=== PATIENT | female | born 1995 | race Caucasian/White ===

== ENCOUNTER 2020-11-28 12:09 | Day surgery (SDC) | payer MEDICAID, OTHER ==
[2020-11-28] MEDS ORDERED: hydrALAZINE 20 MG/ML VIAL SLOW IVP PRN (13:09)
[2020-11-28] MEDS ORDERED: Calcium Carbonate 500 MG ChewTAB PO PRN (13:48)
--- NOTE | 2020-11-28 13:49 | PDOC.LDHP ---
Labor and Delivery H&P Chief complaint: abdominal pain HPI: Patient is a 25 yo at unknown gestation but with reported CANDIDO of either 11/14/20 or 12/04/20 who presents to triage with complaint of lower achy abdominal pain that has been ongoing for 1-2 weeks and worsening in the last 3-4 days. Also has had some dysuria and "lots of thin discharge" for the last 4 days. Denies itching, vaginal bleeding, contractions. Patient states she was seen for this problem at a [place] facility 2 days ago but left AMA because she preferred to establish care in [place] instead of [place]. Her 2 previous pregnancies were managed by Dr. Bennett at [facility]. She has not seen anyone for care with this . She did have an ultrasound in August but does not know details other than being told the baby looked healthy and was a male. She currently smokes 1/2 ppd. Dating criteria: other (unknown CANDIDO, has LMP of 01/26/2020) Grav: 3 Para: 2 (2001) OB History Details: No care this pLTCS for NRFHT in 2012 rLTCS in 2017 Denies any issues in prior pregnancies with blood pressure or diabetes Current complications: other (no PNC) Past Medical History: Anxiety GERD smokes 1/2 ppd Current medications: none Previous surgical history: low tranverse CS (x2) Allergies/Adverse Reactions: Allergies Allergy/AdvReac Type Severity Reaction Status Date / Time No Known Allergies Allergy Unverified 01/24/20 18:40 Social history: tobacco use (1/2 ppd), drug use (amphetamines, methamphetamines) - Physical Exam Vital signs reviewed and normal: yes General: resting Lungs: nonlabored breathing Abdomen: NTTP Extremeties: no edema FHT: category 1, variability present [place] contractions every: none seen - OB Labs Blood type: O RH: positive Antibody Screen: unknown HIV: unknown RPR: unknown HEPSAg: unknown GBS: unknown Urine drug screen: positive (methamphetamines) - Plan -: 25 yo at unknown gestational age presents with lower abdominal pain: #Abdominal Pain -check UA, VP3, GC/CT -Amnisure to check for ruptured membranes -complete OB U/S #Third Trimester , suspected -LMP 01/26/2020, hx of irregular periods -obtain labs including CBC, HIV, RPR, Rubella, UDS -GBS swab now -continuous external monitoring while in L&D, currently cat 1 tracing Dispo: Obtain labs and ultrasound. Place on continuous external monitoring. ADDENDUM 11/28/20 @ 1430: Amnisure negative. Ultrasound shows 38.2 week gestation with CANDIDO of 12/10/2020, vertex presentation. UDS positive for methamphetamines. Cervical check 2/thick/high. Will schedule for rLTCS on 12/03/20 @ 0830, COVID swab today in preparation for this. Will call patient with results of pending labs if needs antibiotic treatment. DO Mandeep, PGY-2 Above H&P discussed with Dr. William who agrees with plan. Addendum - Attending - Attending Attestation Date/Time: 11/28/20 7039 I personally evaluated the patient and discussed the management with Dr. Nuñez. I agree with the History, Examination, Assessment and Plan documented above with any addition or exceptions noted below. at 38w2d by today's ultrasound with no care and no e/o acute process. Dating unsure otherwise as she has irregular periods. Patient reported having an ultrasound at [facility]. After talking to radiology there, she has not been seen or imaged since 2012. UDS + for meth and amphetamines. NPC labs unremarkable otherwise. status reassuring with reactive NST and normal SHARYN. Covid swab collected. Patient scheduled for repeat LTCS at 39 weeks on 12/03 to be performed by [facility]. Patient informed of this scheduling and became tearful because she "wants to have the baby NOW." Reports feeling safe at home, just doesn't want to be anymore. Discharged home with precautions. NPO after midnight on Monday.
--- NOTE | 2020-11-28 13:58 | ULT ---
Obstetrical ultrasound: 11/28/2020 COMPARISON: None HISTORY: No care, 25-year-old female TECHNIQUE: Multiplanar grayscale sonographic imaging of the gravid uterus obtained. FINDINGS: A single intrauterine gestation is present demonstrating a vertex presentation. Amniotic fl uid index is 11.8 cm. heart rate is 139 bpm. intracranial contents are not well assessed secondary to gestational age and location of the fe jean-paul head. Gestational age limits assessment of the spine. Four-chamber heart view appears suboptimal. stomach, kidneys, umbilical cord, and bladder appea r grossly unremarkable. No evidence for placental previa or placental abruption. biometry: Biparietal diameter 8.5 cm 34 weeks 3 days Abdominal circumference 35.3 cm 39 weeks 2 days Head circumference 33.9 cm 39 weeks 0 days Femur length 7.6 cm 39 weeks 0 days Average age based on ultrasound is 38 weeks 2 days. Estimated date of delivery is to 02/23/2021. Estimated weight is 3514 g +/- 520 g. IMPRESSION: Intrauterine gestation as detailed above.
[2020-11-28 13:59] LABS: Bilirubin Negative (Negative); Blood, Urine Negative (Negative); Clarity Clear (Clear); Glucose, Urine (Dipstick) Normal (Negative); Ketone, Urine Negative (Negative); Leukocyte 500 Leu/uL (Negative); Nitrite Negative (Negative); Protein, Urine (Dipstick) 10 mg/dL (Neg-Trace); Specific Gravity, Urine 1.017 (1.002-1.036); Urobilinogen Normal mg/dL (Less than 2); WBC/HPF 21-50 HPF (0-3)
[2020-11-28 14:00] LABS: Bacteria/HPF 1+ HPF (None Seen)
[2020-11-28 14:02] LABS: Medtox Reader # READER 4; Methamphetamine Detected (NotDetected)
[2020-11-28 14:03] LABS: Amphetamine Detected (NotDetected); Barbiturates Screen Not Detected (NotDetected); Benzodiazepine Screen Not Detected (NotDetected); Cocaine Metabolite Screen Not Detected (NotDetected); Medtox Control Line Valid? VALID (VALID); Methadone Not Detected (NotDetected); Opiate Screen Not Detected (NotDetected); Oxycodone Screen Not Detected (NotDetected); Phencyclidine (PCP) Not Detected (NotDetected); THC/Cannabinoid Screen Not Detected (NotDetected); Tricyclic Screen Not Detected (NotDetected)
[2020-11-28 14:10] VITALS: BMI 26.4
[2020-11-28 14:18] LABS: #Eosinphils 0.1 thou/uL (0.0-0.7); #Lymphocytes 2.5 thou/uL (1.20-3.40); #Monocytes 0.5 thou/uL (0.11-0.59); #Neutrophils 4.9 thou/uL (1.40-6.50); %Basophils 0.2 % (0.0-1.0); %Eosinophils 1.8 % (0.0-10.0); %Lymphocytes 30.8 % (21.0-51.0); %Monocytes 6.2 % (0.0-10.0); %Neutrophils 61.1 % (42.0-75.0); Hemoglobin 10.9 g/dL (12.0-16.0); Mean Corpuscular Hemoglobin 28.9 pg (27.0-31.0); Mean Platelet Volume 9.4 fL (7.4-10.4); Platelet Count 210 thou/uL (130-400); RBC Distribution Width 12.5 % (11.5-14.5); Red Blood Cell (RBC) Count 3.75 mill/uL (4.20-5.40)
[2020-11-28 14:24] LABS: Amnisure Test No Membranes Rupture (No Rupture)
[2020-11-28 14:25] LABS: Amnisure Internal Control QC ACCEPTABLE (ACCEPTABLE)
[2020-11-28 15:06] LABS: HBSAB Concentration Less than 8.00 mIU/mL; Hep B Surf AB Non-Reactive (NonReactive); Syphilis Antibody Nonreactive (Nonreactive); Syphilis Antibody Index 0.03 S/CO (<1.00 Non-Reactive)
[2020-11-28 19:00] LABS: SARS-CoV-2 PCR by NAA Not Detected (NotDetected)
[2020-11-28 19:12] LABS: HIV (1/2) Antibody/Antigen Non-Reactive (NonReactive); HIV 1/2 INDEX 0.13 S/CO (<1.00); Hep C IgG Ab Non-Reactive (NonReactive); Hep C Index 0.06 S/CO (0-0.79)
[2020-12-01 21:58] LABS: Chlamydia by PCR DETECTED (NotDetected); GC by PCR Not Detected (NotDetected)
== END 2020-11-28 14:50 | disposition home health service (06) ==
LOC: L&D/OP 12:09
PROVIDERS: ATTEND Obstetrics & Gynecology
DX: O99.891 Other specified diseases and conditions complicating pregnancy (principal); R10.30 Lower abdominal pain, unspecified; R30.0 Dysuria; N89.8 Other specified noninflammatory disorders of vagina; O99.333 Smoking (tobacco) complicating pregnancy, third trimester; F17.210 Nicotine dependence, cigarettes, uncomplicated; O99.613 Diseases of the digestive system complicating pregnancy, third trimester; K21.9 Gastro-esophageal reflux disease without esophagitis; O99.343 Other mental disorders complicating pregnancy, third trimester; F41.9 Anxiety disorder, unspecified; O34.211 Maternal care for low transverse scar from previous cesarean delivery; Z3A.38 38 weeks gestation of pregnancy; Z20.822 Contact with and (suspected) exposure to COVID-19
CPT/HCPCS: 36415; 76805; 80306; 81001; 84112; 85025; 86706; 86762; 86780; 86803; 86850; 86900; 86901; 87081; 87389; 87480; 87491; 87510; 87591; 87635; 87660; U0003; U0005

== ENCOUNTER 2020-11-29 08:44 | Inpatient (IN) | payer OTHER ==
[2020-11-29] MEDS ORDERED: hydrALAZINE 20 MG/ML VIAL SLOW IVP PRN ×3 (09:03→15:48)
[2020-11-29] MEDS ORDERED: metroNIDAZOLE 500 MG TAB PO SCH (09:15)
[2020-11-29 09:27] VITALS: BMI 26.4
[2020-11-29] MEDS ORDERED: FLU VACC QS2020-21(6MOS UP)/PF 60 MCG/0.5 ML SYRINGE IM ONE (09:30)
[2020-11-29] MEDS ORDERED: Ondansetron PF 4 MG/2 ML Vial IVP PRN ×3 (09:57→15:48)
[2020-11-29] MEDS ORDERED: Famotidine/PF 20 mg/2ml Vial SLOW IVP PRN (09:57)
[2020-11-29] MEDS ORDERED: Promethazine HCl 25 MG/ML VIAL IM PRN ×3 (09:57→15:48)
[2020-11-29] MEDS ORDERED: Bicitra 30 ML UDCUP PO PRN (09:57)
[2020-11-29] MEDS ORDERED: CEFAZOLIN 2 GM in Premix Bag 1 BAG IVPB SCH (10:00)
[2020-11-29] MEDS ORDERED: Lactated Ringer's 1,000 ML IV SCH (10:00)
[2020-11-29] MEDS ORDERED: Azithromycin 500 MG in Sodium Chloride 0.9% 250 ML 250 ML IVPB SCH (10:00)
[2020-11-29] MEDS: Butorphanol Tartrate 1 MG/ML VIAL SLOW IVP PRN ×2 (10:27→12:17)
[2020-11-29 10:33] LABS: Amnisure Internal Control QC ACCEPTABLE (ACCEPTABLE); Amnisure Test RUPTURE DETECTED (No Rupture)
[2020-11-29 10:49] LABS: Hemoglobin 10.9 g/dL (12.0-16.0); Mean Corpuscular HGB CONC 32.9 g/dL (32.0-36.0); Mean Corpuscular Hemoglobin 27.9 pg (27.0-31.0); Mean Corpuscular Volume 84.9 fL (78.0-98.0); Mean Platelet Volume 9.5 fL (7.4-10.4); Platelet Count 216 thou/uL (130-400); RBC Distribution Width 12.4 % (11.5-14.5); Red Blood Cell (RBC) Count 3.92 mill/uL (4.20-5.40); White Blood Cell (WBC) Count 8.1 thou/uL (4.8-10.8)
[2020-11-29] MEDS ORDERED: Butorphanol Tartrate 1 MG/ML VIAL SLOW IVP PRN (12:22)
[2020-11-29] MEDS ORDERED: Oxytocin 10 UNITS/ML VIAL ONE ×2 (12:29→13:31)
[2020-11-29] MEDS ORDERED: Morphine PF 10 MG/10 ML VIAL ONE (12:29)
[2020-11-29] MEDS ORDERED: PHENYLEPHRINE-NS 100 MCG/ML 10 ML SYRINGE ONE (12:51)
[2020-11-29] MEDS ORDERED: Succinylcholine 200 MG/10 ml SYRINGE FS ONE (13:04)
[2020-11-29] MEDS ORDERED: PROPOFOL 0 ML ONE (13:04)
[2020-11-29] MEDS ORDERED: Ketamine 50 MG/ML (10ML VIAL) ONE (13:06)
[2020-11-29] MEDS ORDERED: Fentanyl 100 MCG/2 ML VIAL ONE (13:06)
[2020-11-29] MEDS ORDERED: Midazolam HCl 2 mg/2 ml Vial ONE (13:06)
[2020-11-29] MEDS ORDERED: Ondansetron HCl/PF 4 MG/2 ML Vial IVP PRN (13:53)
[2020-11-29] MEDS ORDERED: Naloxone HCl 0.4 mg/ml Vial IV PRN (13:53)
[2020-11-29] MEDS ORDERED: Meperidine HCl/PF 25 MG/ML VIAL SLOW IVP PRN (13:53)
[2020-11-29] MEDS ORDERED: Promethazine HCl 25 MG SUPP PR PRN (13:53)
[2020-11-29] MEDS ORDERED: diphenhydrAMINE 50 MG/ML VIAL IVP PRN (13:53)
[2020-11-29] MEDS ORDERED: L&D-Morphine 4 MG/ML VIAL SLOW IVP PRN (13:53)
[2020-11-29] MEDS ORDERED: HYDROmorphone 2 MG/ML VIAL SLOW IVP PRN (13:53)
[2020-11-29] MEDS ORDERED: Naloxone HCl 0.4 mg/ml Vial IVP PRN ×2 (13:53)
--- NOTE | 2020-11-29 13:53 | PDOC.FPRHP ---
- History of Present Illness Chief Complaint: contractions History of Present Illness: Patient recently triaged (11/28) for similar complaint. No PNC. Today began having ctx @ 0500 that are painful and q5-6 minutes. She endorses leakage of fluid and vaginal pressure. She denies vaginal bleeding or decreased movement. - Allergies/Adverse Reactions Allergies Allergy/AdvReac Type Severity Reaction Status Date / Time No Known Allergies Allergy Verified 11/28/20 15:33 - Home Medications Medication Instructions Recorded Confirmed Type No Known 11/29/20 11/29/20 History - History PMHx: PSHx: FHx: Social: - Vital signs BP: [] HR: [] RR: [] Tmax: [] Pox: []% on [] Wt: [] FMR H&P: Results - Labs Result Diagrams: 11/29/20 10:17 Lab results: WBC 8.1 thou/uL (4.8-10.8) 11/29/20 10:17 Hgb 10.9 g/dL (12.0-16.0) L 11/29/20 10:17 Hct 33.2 % (36.0-47.0) L 11/29/20 10:17 MCV 84.9 fL (78.0-98.0) 11/29/20 10:17 Plt Count 216 thou/uL (130-400) 11/29/20 10:17 FMR H&P: Upper Level - Plan Date/Time: 11/29/20 1351 I, [], have evaluated this patient and agree with findings/plan as outlined by recruitment intern resident. Pertinent changes/additions are listed here.
--- NOTE | 2020-11-29 13:55 | PDOC.FPROB ---
FMR OB H&P: HPI - History of Present Illness Chief Complaint: contractions Indentification: 25yo History of Present Illness: Patient recently triaged (11/28) for similar complaint. No PNC. Today began having ctx @ 0500 that are painful and q5-6 minutes. She endorses leakage of fluid and vaginal pressure. She denies vaginal bleeding or decreased movement. Primary Care Physician: NO PNC FMR OB H&P: Current - Care : 3 Para: 2001 Gestational age: 38.3 Due date: 12/10/20 Dating Criteria: 3T sono Course/Complications: NO PNC - OB Labs Blood type: O RH: positive Antibody Screen: negative HIV: negative RPR: negative HepBsAg: negative Urine drug screen: positive (meth and amphetamines) Gonorrhea: unknown (pending) Chlamydia: unknown (pending) GBS: unknown (pending) FMR OB H&P: History - Past Medical History PMH: Anxiety GERD Tobacco use - OB History OB History: NO PNC. pLTCS for NRFHT 2012, rLTCS in 2017 - FIGURE SKATER History FIGURE SKATER History: Recently + for michelle, BV and trich. GC/CT pending. - Surgical History Sx History: LTCS x 2 - Social History Social History: Tobacco use FMR OB H&P: Medications - Current Home Medications: Medication Instructions Recorded Confirmed Type No Known 11/29/20 11/29/20 History Allergies/Adverse Reactions: Allergies Allergy/AdvReac Type Severity Reaction Status Date / Time No Known Allergies Allergy Verified 11/28/20 15:33 FMR OB H&P: ROS - Review of Systems General: denies: fever/chills, weight/appetite/sleep changes, recent trauma Eyes: denies: vision changes ENT: denies: nasal congestion, rhinorrhea, sore throat Cardiovascular: denies: chest pain, palpitation, edema Respiratory: denies: cough, congestion Gastrointestinal: denies: abdominal pain, indigestion, bloating, cramping, nausea, vomiting Genitourinary (Female): denies: incontinence, dysuria, hematuria, vaginal discharge, vaginal pain, vaginal bleeding Musculoskeletal: denies: pain, stiffness, tenderness Neurologic: denies: numbness, syncope, seizures Integumentary: denies: itching, rash, lesions Breast: denies: lumps, bumps, masses Endocrine: denies: cold intolerance, heat intolerance FMR OB H&P: Vital Signs - Maternal Vital signs: Reviewed. WNL. - Heart Tones Baseline: 130 Variability: moderate Acceleration: present Deceleration: absent Category: category 1 FMR OB H&P: Physical Exam - Physical Exam General: NAD, awake, alert and oriented HEENT: normocephalic and atraumatic, PERRLA, EOMI, MMM, conjunctiva clear Neck: supple, FROM, trachea midline Chest: non-tender to palpation Breast: symmetric, non-tender Heart: RRR, normal S1/S2 General: CTAB, no respiratory distress Abdomen: soft, gravid, non-tender Musculoskeletal: normal gait and station Neurological: cranial nerves II through XII intact Skin: no rash, good tugor Psychiatric: intact recent and remote memory - Pelvic Exam Vulva: normal hair distribution Cervix: no masses, no lesions, no blood Deviation from normal: Open SVE: 2/50/-3 Membranes: obviously ruptured. Presentation: cephalic FMR OB H&P: Results - Labs Lab results: Laboratory Results - last 24 hr 11/29/20 11/29/20 11/29/20 09:58 10:17 10:17 WBC 8.1 RBC 3.92 L Hgb 10.9 L Hct 33.2 L MCV 84.9 MCH 27.9 MCHC 32.9 RDW 12.4 Plt Count 216 MPV 9.5 Amnio Swab Test RUPTURE DETECTED H Blood Type O POSITIVE Antibody Screen NEGATIVE FMR OB H&P: A/P Disposition: Stable, admit for delivery and routine pp care. Discussion: Date/Time: 11/29/20 1353 Term , SROM, in labor. - CTX q 4-5 min. - SROM prior to arrival. - Amnisure positive (collected prior to spec exam, which revealed grossly ruptured membranes. - 2 prior c-sections. Admit and plan for repeat MARIALUISA. - Methamphetamine positive 11/28/2020. Case management consulted. - Positive for yeast, BV and trichomonas. Received 1 dose of metronidazole. Will hold until has been determined. Janeth VALENCIA PGY2 This H&P was discussed with Dr. Nelson who agrees with the above documentation and plan.
[2020-11-29] MEDS ORDERED: Ketorolac Tromethamine 30 MG/ML VIAL IVP SCH (14:00)
[2020-11-29] MEDS ORDERED: Communication Order-Pharmacy FS SCH (14:00)
--- NOTE | 2020-11-29 15:01 | OP ---
DATE OF PROCEDURE: 11/29/2020 PREOPERATIVE DIAGNOSES: Poor care with approximately 38 to 39 weeks' gestation, history of methamphetamine abuse, history of prior delivery, spontaneous rupture of membranes, and early active labor. POSTOPERATIVE DIAGNOSES: Poor care with approximately 38 to 39 weeks' gestation, history of methamphetamine abuse, history of prior delivery, spontaneous rupture of membranes, early active labor plus lower uterine segment dehiscence. PROCEDURE PERFORMED: Repeat low-transverse section with midline lower uterine segment extension. INTERNAL INVESTIGATOR: Leia Boo MD, PGY-2. ANESTHESIOLOGIST: Mayo Rdz MD ANESTHESIA: Subarachnoid block. MEDICATIONS: 2 g Ancef, 500 Zithromax preincision. DVT PROPHYLAXIS: SCDs. DRAINS: Prado to gravity clear urine. OPERATIVE FINDINGS: 1. Vigorous male infant, cephalic presentation, clear fluid to nursery. 2. Approximately 3 to 4 cm lower uterine segment defect extending inferiorly with amniotic membranes protruding through at the time of entry into the abdominal cavity. 3. Normal-appearing uterus otherwise with repair of hysterotomy and extension. 4. Hemostasis, clear urine. COUNTS: Correct at the end of the procedure. DISPOSITION: To recovery room in good condition. DESCRIPTION OF PROCEDURE: After obtaining appropriate informed consent, the patient was taken to the operating room, where subarachnoid block was achieved without difficulty. She was prepped and draped in the usual manner. A skin incision was made, carried down to the fascia, was extended superiorly and laterally with curved Babin scissors. Rectus dissected off sharply superiorly and inferiorly, divided in midline. Peritoneum entered bluntly. Upon entry into the abdominal cavity, the finding of the disruption of the lower uterine segment was noted with amnion in the peritoneal cavity. The Jackson O retractor was placed inside. The disruption was extended superiorly and laterally with finger fractionization. Amniotic membrane ruptured and infant's head delivered through the hysterotomy, delivered on the abdomen. The cord was cut and clamped and handed off to the Team in attendance. Usual cord blood sample obtained. Placenta was removed manually. Lateral extensions of the hysterotomy were easily identified inferiorly at the level of the rupture. It had extended down approximately 2 cm below the usual level of the hysterotomy. It was, however, not involving the bladder and no evidence of injury to or disruption of the bladder mucosa was noted. Urine was noted to be clear in the tube. The hysterotomy was closed using a running locking #1 Monocryl suture x2, taking care to avoid injury to the bladder. Suction irrigation was carried out. Gutters were irrigated, noted to be dry. Hysterotomy was reinspected and noted to be dry. The Jackson O retractor was removed. Rectus inspected, noted to be dry. Counts were correct. The fascia was reapproximated using 0 PDS suture x2. Subcutaneous tissue was irrigated, rendered hemostatic with Bovie cautery. Skin was reapproximated using 4-0 Monocryl and Dermabond. Counts were correct x2. The patient entered into routine care. Nursery notified to [facility] that the patient has a positive methamphetamine test on her last presentation yesterday. Job ID: [id number]
[2020-11-29] MEDS ORDERED: Ketorolac Tromethamine 30 MG/ML VIAL ONE (15:36)
[2020-11-29] MEDS: Ketorolac Tromethamine 30 MG/ML VIAL IVP PRN (15:42)
[2020-11-29] MEDS ORDERED: Acetaminophen 325 MG TAB PO PRN (15:48)
[2020-11-29] MEDS ORDERED: diphenhydrAMINE 25 MG CAP PO PRN (15:48)
[2020-11-29] MEDS ORDERED: Simethicone Chewable 80 MG TAB PO PRN (15:48)
[2020-11-29] MEDS ORDERED: Lanolin Ointment 7 GM TUBE TOP PRN (15:48)
[2020-11-29] MEDS ORDERED: Adacel (T-DAP) 0.5 ML SYRINGE IM ONE (17:00)
[2020-11-29] MEDS ORDERED: Morphine 2 MG/ML VIAL SLOW IVP PRN (19:07)
[2020-11-29] MEDS ORDERED: Clotrimazole 2% 3 Day Vag Cr 22.2 GM TUBE VAG SCH (21:00)
[2020-11-30] MEDS: Ketorolac Tromethamine 30 MG/ML VIAL IVP PRN ×2 (00:35→05:55)
[2020-11-30] MEDS ORDERED: HYDROcodone/Acetaminophen 5/325 mg Tablet PO PRN (02:01)
[2020-11-30 06:18] LABS: Hemoglobin 9.6 g/dL (12.0-16.0); Mean Corpuscular HGB CONC 32.6 g/dL (32.0-36.0); Mean Corpuscular Hemoglobin 27.6 pg (27.0-31.0); Mean Corpuscular Volume 84.6 fL (78.0-98.0); Mean Platelet Volume 9.2 fL (7.4-10.4); Platelet Count 180 thou/uL (130-400); RBC Distribution Width 12.3 % (11.5-14.5); Red Blood Cell (RBC) Count 3.48 mill/uL (4.20-5.40); White Blood Cell (WBC) Count 10.9 thou/uL (4.8-10.8)
--- NOTE | 2020-11-30 07:22 | PDOC.PP ---
Post Progress Note Post Day #: 1 Subjective: Resting comfortably, no acute events overnight. Endorses abdominal pain only with palpation. Feels similar to previous c-sections. No chest pain, SOB, fever, chills. PO intake tolerated: yes Flatus: no Ambulation: yes Vital Signs (12 hours) Temp Pulse Resp BP Pulse Ox 11/30/20 05:58 99.1 F 82 16 135/86 11/29/20 23:25 98.4 F 72 16 131/82 11/29/20 20:08 98.0 F 52 L 16 140/86 97 Weight Weight 61.235 kg - Physical Examination General: NAD Cardiovascular: no m/r/g, RRR Respiratory: clear to auscultation bilaterally, non-labored breathing Abdominal: no distention Deviation from normal: moderately TTP, no rebound or rigidity Fundus firm & at: below umbilicus Deviation from normal: pressure dressing in place, c/d/i Neurological: no gross focal deficits Psychiatric: A&Ox3, normal affect Result Diagrams: 11/30/20 05:54 Additional Labs: Post Labs Blood Type O POSITIVE 11/29/20 10:17 - Assessment/Plan Term , delivered - s/p rLTCS on 11/30 remarkable for uterine segment defect - VSS, bleeding appropriate, Hgb appropriate, continue vitamin - moderate abdominal tenderness, monitor for signs of chorio - no care, GC/CT labs pending from 11/28 triage Methamphetamine use Positive on UDS, baby positive as well. - consult CPS Bacterial vaginosis, candidiasis, trichomonas - received metronidazole x 1 pre-op, held after due to potential for breastf eeding - consider resuming therapy pending CPS recs Reviewed plan with Dr. Nelson. Fauzia Carcamo, DO, PGY-1
[2020-11-30] MEDS: Prenatal Vitamin 1 TAB PO SCH (08:39)
[2020-11-30] MEDS: Ibuprofen 800 MG TAB PO SCH ×2 (14:08→20:34)
[2020-11-30] MEDS: HYDROcodone/Acetaminophen 5/325 mg Tablet PO PRN (18:35)
[2020-12-01] MEDS: HYDROcodone/Acetaminophen 5/325 mg Tablet PO PRN ×3 (01:14→11:55)
[2020-12-01] MEDS: Ibuprofen 800 MG TAB PO SCH (06:19)
--- NOTE | 2020-12-01 06:40 | PDOC.PP ---
Post Progress Note Post Day #: 2 Subjective: No acute overnight events. Feeling well, pain controlled. Passing flatus, voiding well. Ambulating with mild pain. PO intake tolerated: yes Flatus: yes Ambulation: yes Vital Signs (12 hours) Temp Pulse Resp BP Pulse Ox 11/30/20 20:05 98.5 F 88 18 147/86 H 96 Weight Weight 61.235 kg - Physical Examination General: NAD Cardiovascular: no m/r/g, RRR Respiratory: clear to auscultation bilaterally, non-labored breathing Abdominal: + bowel sounds, no distention, appropriately TTP Extremities: negative homans (B) Skin: CS incision dry & intact, no rash Neurological: no gross focal deficits Psychiatric: A&Ox3 Deviation from normal: flat affect Result Diagrams: 11/30/20 05:54 Additional Labs: Post Labs Blood Type O POSITIVE 11/29/20 10:17 - Assessment/Plan Term , delivered - s/p rLTCS on 11/30 remarkable for uterine segment defect - VSS, bleeding appropriate, Hgb appropriate on POD #1, continue vitamin - no care, GC/CT labs pending from 11/28 triage Methamphetamine use Positive on UDS, baby positive as well. - CPS following, interviewing maternal grandfather for baby disposition today Bacterial vaginosis, candidiasis, trichomonas - received metronidazole x 1 pre-op, held after due to potential for - will restart metronidazole this AM Appropriate for discharge at any time. Will hold discharge until placement for baby is determined. Reviewed plan with Dr. Hwang. Fauzia Carcamo, DO, PGY-1
[2020-12-01 08:00] VITALS: BP 135/88; TEMP 97.5
[2020-12-01] MEDS: Prenatal Vitamin 1 TAB PO SCH (08:21)
[2020-12-01] MEDS ORDERED: metroNIDAZOLE 500 MG TAB PO SCH (09:00)
== END 2020-12-01 14:10 | disposition home or self-care (01) | DRG 787 ==
LOC: L&D/OP 08:44 → L&D 08:50 → 3SE 16:30
PROVIDERS: ADMIT Obstetrics & Gynecology; ATTEND Obstetrics & Gynecology
PROC: 10D00Z1 Extraction of Products of Conception, Low, Open Approach (ICD-10-PCS; principal; 2020-11-29)
DX: O34.211 Maternal care for low transverse scar from previous cesarean delivery (principal); O98.82 Other maternal infectious and parasitic diseases complicating childbirth; Z3A.38 38 weeks gestation of pregnancy; Z37.0 Single live birth; O99.323 Drug use complicating pregnancy, third trimester; O98.32 Other infections with a predominantly sexual mode of transmission complicating childbirth; O99.344 Other mental disorders complicating childbirth; F41.9 Anxiety disorder, unspecified; K21.9 Gastro-esophageal reflux disease without esophagitis; O99.613 Diseases of the digestive system complicating pregnancy, third trimester; O99.334 Smoking (tobacco) complicating childbirth; F17.200 Nicotine dependence, unspecified, uncomplicated; A59.01 Trichomonal vulvovaginitis; B37.3 Candidiasis of vulva and vagina; F19.10 Other psychoactive substance abuse, uncomplicated
CPT/HCPCS: 36415; 51702; 76805; 80306; 81001; 84112; 85025; 85027; 86706; 86762; 86780; 86803; 86850; 86900; 86901; 87081; 87389; 87480; 87491; 87510; 87591; 87635; 87660; 88307; 99285; J0456; J0595; J0690; J1200; J1885; J2250; J2270; J2704; J3010; J7050; Q0163; U0003; U0005